=== PATIENT | female | born 2000 | race American Indian/Alaskan Native ===

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

== ENCOUNTER 2020-05-24 15:31 | Inpatient (IN) | payer MEDICAID, OTHER ==
[2020-05-24] MEDS ORDERED: Carboprost Tromethamine 250 MCG/1 ML Amp IM PRN (17:07)
[2020-05-24] MEDS ORDERED: Methylergonovine 0.2 MG/1 ML Amp IM PRN (17:07)
[2020-05-24] MEDS ORDERED: Sodium Chloride 0.9% 10 ML Syringe FLUSH PRN (17:07)
[2020-05-24] MEDS ORDERED: Lidocaine 1% 30 ML SDV INJECT PRN (17:07)
[2020-05-24] MEDS ORDERED: Tranexamic Acid 1,000 MG in Sodium Chloride 0.9% 100 ML IV PRN (17:07)
[2020-05-24] MEDS ORDERED: Lactated Ringers 1,000 ML IV ONE (17:07)
[2020-05-24] MEDS ORDERED: Acetaminophen 325 MG Tab PO PRN (17:07)
[2020-05-24] MEDS ORDERED: Misoprostol 400 MCG (4 X 100 MCG TAB) RECTAL PRN (17:07)
[2020-05-24] MEDS ORDERED: Ondansetron 4 MG/2 ML SDV IVPUSH PRN (17:07)
[2020-05-24] MEDS ORDERED: Lactated Ringers 1,000 ML IV SCH (17:15)
[2020-05-24] MEDS ORDERED: Oxytocin/Normal Saline 30 UNIT/500 ML BAG IV SCH (17:15)
--- NOTE | 2020-05-24 19:22 | OBOUT ---
DATE: 05/24/2020 TIME: 1600 to 1620. REASON FOR NST: 1. Intrauterine at 37-6/7th weeks to 38-6/7th weeks based on ultrasound and LMP. 2. Being admitted for active labor. 3. GBS negative. 4. Positive gonorrhea treated last week. 5. Rubella nonimmune. 6. G1, P0. 7. bradycardia noted in the clinic prior to NST. NST INTERPRETATION: During this time period, heart tone baseline is approximately 120 and at least two 15 x 15 beats per minute accelerations, making this strip reactive as well as reassuring. Tocometer reveals potential 8 to 10 contractions felt by patient. ASSESSMENT: 1. Nonstress test, reactive and reassuring. 2. Tocometer with contractions. PLAN: Please see admit history and physical for further details. [facility] /[id number]
--- NOTE | 2020-05-24 21:13 | HP ---
PATIENT IDENTIFICATION: Esteban Eli is a 19-year-old G1, P0, intrauterine , 37-6/7 weeks by dates, 38-6/7 weeks by a 22-6/7-week ultrasound, presents with contractions. HISTORY OF PRESENT ILLNESS: The patient was initially seen in the clinic, had heart tones in the 90s, and was sent over to the hospital immediately; thereafter, at the hospital, no decelerations or significant bradycardia was noted; however, she was ronnell every 2 minutes on the strip and started complaining of back pain and now subsequent front pain with contractions worsening over time. She describes them severe enough that she will breathe through them, coming on every 2 to 3 minutes, and worsening over time. She denies any leaking of fluid. Minimal bloody show was noted with the initial cervical exam done over at the clinic. She is GBS negative. She was treated for gonorrhea and chlamydia back in 11/2019 after being positive on 11/07/2019 and then was tested negative on 01/11/2020 and then positive for gonorrhea on 05/10/2020 and was treated last week for this with Zithromax and Rocephin. She was GBS negative on 05/10/2020. Records were called for, reviewed as below, and supplemented by patient history. ALLERGIES: None listed. MEDICATIONS: vitamins daily. PAST MEDICAL/PAST SURGICAL HISTORY: Reviewed and contributory for a history of irregular menses, using Depo in the past in 2013. FAMILY HISTORY: Mother with asthma. Maternal grandfather with stomach cancer. Maternal grandmother with cervical cancer and diabetes. Brother had cerebral palsy, severe, from trauma. No other defects, anesthesia problems, or bleeding problems. SOCIAL HISTORY: Living with aunt, Yael, and mother, sister, uncle, brother, and cousin as well as grandmother in the [place] area; starting college this coming semester, studying at [employer]. The father of the baby is Jb [address]. He is currently in [place] and presenting to the hospital today. They are planning on having a baby boy. She denies any alcohol, tobacco, or drug use. REVIEW OF SYSTEMS: Otherwise reviewed fully and felt to be noncontributory. Antepartum labs from S records. ABO blood type B positive. Negative antibody. Rubella nonimmune. RPR nonreactive. Negative hepatitis B surface antigen, hep C, and HIV. GC and chlamydia were initially positive on 11/07/2019, treated on 11/24/2019, and negative on 01/11/2020, followed by positive gonorrhea on 05/10/2020, treated last week, and GBS was negative on 05/10/2020. OBJECTIVE: VITAL SIGNS: Temperature is 97.2, blood pressure is 108/69, and heart rate is 84. APPEARANCE: A female, appears stated age, acting appropriate for age, nontoxic appearance, breathing through her contractions, but answering questions appropriately in between. HEAD: Atraumatic. EYES: EOMs are intact. PERRLA. No scleral icterus. No obvious otorhinorrhea. Mucous members are moist. NECK: No obvious tenderness. LUNGS: Clear to auscultation bilaterally. No increased work of breathing. HEART: S1 and S2. Regular rate and rhythm. ABDOMEN: Gravid. Michael's is indeterminate. Nontender. Nondistended. Bowel sounds are positive. No organomegaly, pulsatile masses, or obvious hernias. No rebound, rigidity, or guarding with monitors applied. GENITOURINARY: Normal external female genitalia. Normal position and presentation of the urethra. Vaginal exam initially done in the clinic, 3 cm, over 75% effaced, -1 and -2 station, vertex suspected. Within 2 hours, she was 4+ cm, 90% effaced, 0 station, vertex suspected, and bulging bag of water felt. EXTREMITIES: No peripheral edema. Deep tendon reflexes are 2 to 3 out of 4 bilaterally and symmetric in the lower extremities. PSYCHIATRIC: Mood and affect are congruent. Judgment and insight are intact. SKIN: Without cyanosis, clubbing, or jaundice. LABORATORY DATA: CBC is pending as well as a rapid COVID test. NST was found to be reactive and reassuring. Tocometer reveals contractions every 2-1/2 minutes on average. ASSESSMENT: 1. Intrauterine , 37-6/7 weeks by last menstrual period, 38-6/7 weeks by a 22-6/7-week ultrasound. 2. Active labor with contractions and cervical change. 3. Group B Streptococcus negative. 4. Positive gonorrhea diagnosed on 05/10/2020, treated last week, and earlier positive gonorrhea and chlamydia in 10/2019, treated on 11/24/2019 with negative being on 01/11/2020. 5. G1, P0. 6. Rubella nonimmune, will need MMR . PLAN: The patient will be admitted. We will continue to follow clinically and closely. The patient defers artificial rupture of membranes at this time as she is waiting for her boyfriend to come up from [place]. I did discuss options with her, and we will continue to follow closely at this point in time. The patient understands and agrees with the above treatment plan. [facility] /[id number]
[2020-05-25] MEDS ORDERED: Nalbuphine 10 MG/1 ML Vial IM ONE (10:22)
[2020-05-25] MEDS ORDERED: Sodium Bicarbonate 4.2% 2.5 MEQ/5 ML SDV ONE ×2 (11:59→12:00)
[2020-05-25] MEDS ORDERED: fentaNYL 100 MCG/2 ML SDV ONE (11:59)
[2020-05-25] MEDS ORDERED: EPINEPHrine 1 MG/1 ML Amp ONE (11:59)
[2020-05-25] MEDS ORDERED: fentaNYL 100 MCG/2 ML SDV ITHECAL ONE (12:00)
[2020-05-25] MEDS ORDERED: Sodium Chloride 0.9% 20 ML SDV ONE (12:00)
[2020-05-25] MEDS ORDERED: ePHEDrine 50 MG/ML SDV ONE (12:21)
--- NOTE | 2020-05-25 12:31 | PCM.SN.2 ---
- Free Text/Narrative Note: Intrathecal. Sitting position, sterile prep and drape. 1% lidocaine w bicarb for skinwheal to L2 L3 interspace, introducer, 24 ga pencan x 1. Pos CSF neg heme, neg parasthesia. 15 mcg pf sufenta, 35 mcg pf fentanyl, 0.4 ml pf NS and 6 mg of 0.75% PF marcaine injected after CSF aspiration. Pt to L lateral position. Pr ocedure time 1200 to 1230
--- NOTE | 2020-05-25 12:35 | PN ---
DATE: 05/25/2020 SUBJECTIVE: The patient's contractions last night were waxing and waning. They have picked up a little bit more this morning. She now has her boyfriend here and is requesting artificial rupture of membranes. Her mother is also present as well. OBJECTIVE: Vital Signs: Blood pressure 104/59, heart rate 94, temperature 98.5. Pelvic: heart tones 140s and felt to be reactive, reassuring. Tocometer reveals contractions every couple of minutes. Vaginal exam reveals to be 4+ cm, 95% effaced, 0 station, vertex suspected. Artificial rupture of membranes done after discussion with the patient yielding copious amounts of clear fluid. ASSESSMENT/PLAN: 1. Intrauterine , suspect 39 weeks after further review of chart with an ultrasound done earlier in the in January revealing her EFW percentile to be 96 percentile with a due date of 06/01/2020 and confirming this with last menstrual period by ultrasound report. 2. Active/late in labor. At this point in time, the patient's contractions continue. She is 39 plus weeks. She is requesting artificial rupture of membranes and shared decision was made in regard to this yielding copious amounts of clear fluid as above. 3. History of positive gonorrhea, treated last week. 4. Rubella nonimmune, will need MMR . 5. bradycardia that was noted in the clinic, none has been seen here while monitoring and we will continue to follow clinically and closely. Plan as above. The patient understands and agrees to the above treatment plan. [facility] /[id number]
[2020-05-25] MEDS ORDERED: ePHEDrine 50 MG/ML SDV IVPUSH ONE (12:54)
[2020-05-25] MEDS ORDERED: Benzocaine/Menthol 20%-0.5% Spray 56 GM Canister TOP PRN (16:36)
[2020-05-25] MEDS ORDERED: Oxytocin 10 Units/1 ML SDV IM PRN (16:36)
[2020-05-25] MEDS ORDERED: Simethicone 80 MG Tab.Chew PO PRN (16:36)
[2020-05-25] MEDS ORDERED: Measles, Mumps & Rubella Vaccine 0.5 ML SDV SUBCUT ONE (16:36)
[2020-05-25] MEDS ORDERED: Zolpidem 5 MG Tab PO PRN (16:36)
[2020-05-25] MEDS: Ibuprofen 800 MG Tab PO PRN (22:46)
[2020-05-25] MEDS: Docusate Sodium 100 MG Cap PO PRN (22:46)
[2020-05-26] MEDS: Ibuprofen 800 MG Tab PO PRN ×2 (10:11→17:45)
[2020-05-26] MEDS: Prenatal Multivitamin with Calcium/Folic Acid/Iron Tab PO SCH (10:12)
[2020-05-26] MEDS: Ferrous Sulfate 325 MG Tab PO SCH (10:13)
[2020-05-26] MEDS: Docusate Sodium 100 MG Cap PO PRN (10:13)
--- NOTE | 2020-05-26 13:21 | PN ---
DATE: 05/26/2020 day #1, status post vacuum- assisted vaginal delivery with a right vaginal sidewall and second-degree perineal laceration-repaired. SUBJECTIVE: The patient is tolerating p.o., was ambulating, urinating, unsure on flatus. OBJECTIVE: Vital Signs: Temperature 99.1, heart rate 80, blood pressure 120/59, respiratory rate 16. Lungs: Clear to auscultation bilaterally. Heart: S1, S2. Regular rate and rhythm. Abdomen: Firm uterus, -2 below umbilicus. Extremities: No peripheral edema. No calf pain. LABORATORY DATA: White cell count 14.2, hemoglobin 10.1 compared to predelivery hemoglobin 12.1, and platelets of 227. ASSESSMENT AND PLAN: 1. day #1 status post vacuum- assisted vaginal delivery of right vaginal sidewall and secondary perineal laceration-repaired. 2. Anemia of acute blood loss. At this point in time, hemoglobin is at 10.1. The patient is asymptomatic. We will continue to follow clinically and closely at this point in time. Otherwise, possible discharge tomorrow discussed with the patient and we will follow closely at this time. [facility] /[id number]
[2020-05-27] MEDS: Ibuprofen 800 MG Tab PO PRN ×2 (03:45→17:23)
[2020-05-27] MEDS: Prenatal Multivitamin with Calcium/Folic Acid/Iron Tab PO SCH (09:11)
[2020-05-27] MEDS: Ferrous Sulfate 325 MG Tab PO SCH (09:11)
[2020-05-27] MEDS: Docusate Sodium 100 MG Cap PO PRN (09:11)
[2020-05-27 09:24] VITALS: BP 83/40; PULSE 69
--- NOTE | 2020-05-28 11:20 | DEL ---
DATE: 05/25/2020 PREOPERATIVE DIAGNOSES: 1. Intrauterine at 39 weeks confirmed/by 22-6/7 week ultrasound. 2. Labor upon admission. 3. Group B Streptococcus negative. 4. Positive gonorrhea disease 05/10/2020, treated last week. 5. Rubella nonimmune. 6. G1, P0. 7. bradycardia noted in the clinic on 05/24/2020. 8. bradycardia in the second stage of labor with occasional recurrent decelerations. POSTOPERATIVE DIAGNOSES: 1. Intrauterine at 39 weeks confirmed/by 22-6/7 week ultrasound - delivered via vacuum-assisted vaginal delivery with Kiwi. 2. Labor upon admission. 3. Group B Streptococcus negative. 4. Positive gonorrhea disease 05/10/2020, treated last week. 5. Rubella nonimmune. 6. G1, P0. 7. bradycardia noted in the clinic on 05/24/2020. 8. bradycardia in the second stage of labor with occasional recurrent decelerations. 9. Right vaginal sidewall and second-degree perineal laceration - repaired. PROCEDURE PERFORMED: Nonstress test followed by artificial rupture of membranes and then subsequent vacuum-assisted vaginal delivery with right vaginal sidewall and second-degree perineal laceration - repaired. ANESTHESIA/ANALGESIA: The patient did receive Nubain in the first stage of labor as well as an intrathecal. ESTIMATED BLOOD LOSS: 350 mL. FINDINGS: Male with score of 8 and 9, weight pending. SUMMARY OF EVENTS: The patient is a 19-year-old, G1, P0, intrauterine at 38-6/7 weeks on date of admission 05/24/2020. This was confirmed/by 22-6/7 week ultrasound. She was initially seen in the clinic, noted to have bradycardia, was sent over to the hospital, and was found to have contractions with cervical change with suspected labor overnight. Her contractions waxed and waned and in the morning, further evaluation did reveal some cervical change. She was requesting artificial rupture of membranes and this was subsequently done. She rapidly progressed in the labor, received Nubain and intrathecal. She was found to be complete and I was called to the room. Subsequently, she started pushing with contractions. descent was noted. During this time, there were some occasional decelerations and then subsequently bradycardia in the 190s to 100s range. Prior to this, Carty catheter was introduced twice to drain the bladder yielding clear to yellowish colored urine. With bradycardia noted, I did discuss with the patient and her male partner proceeding with Kiwi vacuum-assisted vaginal delivery. Discussed the risks, benefits, alternatives, and complications of this. They understood and agreed and wished to proceed. Subsequently, with the next episode of pushing, vertex was seen splitting in the labia. Kiwi vacuum was applied, pumped up to the green, and with gentle pulling pressure, further descent was noted with patient pushing. Between contractions pressure was let down to the yellow zone. After few contractions, a pop-off was noted. Thereafter, bradycardia was noted to recur. Kiwi vacuum was then applied again, pumped up to the green with gentle pulling with contractions pumped up to the green during contractions and down to the yellow when not having contractions. vertex was subsequently delivered. Vacuum was disengaged. CHALO presentation was noted and right hand was by the cheek. Subsequently, with patient continuing to push, anterior shoulder as well as posterior shoulder and rest of the infant delivered without difficulty. Mouth and nares were suctioned. Cord was doubly clamped, cut, and infant was brought to team. Then, approximately 10 mL of cord blood was obtained for labs. Placenta was then delivered with gentle cord traction and fundal massage within 10 minutes. Perineum, vagina, and perirectal areas were then examined and noted to have a right vaginal sidewall laceration extending into a small second-degree perineal laceration. This was subsequently repaired in usual fashion using 3-0 Vicryl. Perineum, vagina, and perirectal areas were then otherwise examined without any other tears or lacerations. Mother and infant are currently stable at the time of dictation. [facility] /[id number] PATRICIA
--- NOTE | 2020-05-28 11:39 | DISCH ---
ADMISSION DIAGNOSES: 1. Intrauterine at 38-6/7 weeks, confirmed by 22-6/7 week ultrasound. 2. Contractions with latent versus active labor, subsequently went into active labor slowly. 3. GBS negative. 4. Positive gonorrhea, treated last week. 5. Rubella nonimmune. 6. bradycardia noted in the clinic on the day of admission, resolved here. 7. 1, Para 0. DISCHARGE DIAGNOSES: 1. Intrauterine at 39 weeks-delivered via vacuum-assisted vaginal delivery. 2. Contractions with latent versus active labor, subsequently went into active labor slowly. 3. GBS negative. 4. Positive gonorrhea, treated last week. 5. Rubella nonimmune. 6. bradycardia noted in the clinic on the day of admission, resolved here. 7. 1, Para 0. 8. bradycardia in the second stage of labor. 9. Recurrent decelerations. 10.Right vaginal sidewall and secondary perineal laceration-repaired. 11.Anemia of acute blood loss, hemoglobin dropping from 12.1 predelivery to 10.1, post delivery without symptoms. PROCEDURES PERFORMED: NST, artificial rupture of membranes with vacuum-assisted vaginal delivery with right vaginal sidewall and 2nd degree perineal laceration- repaired per Dr. Davies. HISTORY OF PRESENT ILLNESS: Please see H and P. SUMMARY OF HOSPITAL COURSE: The patient was admitted on the above date with above diagnoses, had contractions with cervical change. Deferred wanting artificial rupture of membranes, was followed through the evening of 05/24/2020 and then on 05/25/2020, started having contractions with cervical change, underwent artificial rupture of membranes. Rapidly progressed through and into the second stage of labor with second stage of labor, had bradycardia as well as recurrent decelerations. Vacuum-assisted vaginal delivery was done with Kiwi vacuum, yielding a male, score 8 and 9, weighing 7 pounds 4 ounces (3300 g). Please see delivery note for further details. This is notable for right vaginal sidewall and second-degree perineal laceration that was repaired with an EBL 350 mL. day #1, please see progress note. Hemoglobin dropped down to 10.1, the patient was asymptomatic. day #2, date of discharge, the patient was tolerating p.o., was ambulating, urinating, passing flatus, requesting discharge. PHYSICAL EXAMINATION: Vital Signs: Last set of vitals, temperature 98.6, heart rate 69, blood pressure 83/40, prior to that was 102/64, respiratory rate is between 12 and 16. Appearance: No apparent distress. Lungs: Clear to auscultation bilaterally. Heart: S1, S2. Regular rate and rhythm. Abdomen: Firm uterus, -2 below umbilicus. Extremities: No peripheral edema. No calf pain. CONDITION ON DISCHARGE COMPARED TO CONDITION ON ADMISSION: Improved. DISCHARGE INSTRUCTIONS: 1. Diet as tolerated. 2. Activity: No lifting more than 20 pounds. No sit-ups or straining and pelvic rest for the next 6 weeks with immediate return to fertility discussed with the patient. Reasons to return or go to the emergency room were discussed with the patient in detail including but not limited to, temperature greater than 100.4, foul- smelling discharge, red or tender breasts, or increased vaginal bleeding. DISCHARGE MEDICATIONS: 1. [id number] ibuprofen for pain. 2. vitamins daily. FOLLOWUP: 6 weeks . Followup for her baby is recommended for May 29, 2020, and I did discuss with her in the interim reason to go to the emergency room as well as the process of calling clinic tomorrow morning to make an appointment. She understands and agrees to the above treatment plan. [facility] /[id number]
== END 2020-05-27 18:00 | disposition home or self-care (01) | DRG 806 ==
LOC: DL.OBCHECK 15:31 → UNDOADMOB 17:28 → DL.OB 17:28 → INTOOBSV 05-25 14:42 → OBSVTOIN 05-25 14:42 → UNDODISIN 05-27 18:00
PROVIDERS: ADMIT Family Medicine; ATTEND Family Medicine
PROC: 10D07Z6 Extraction of Products of Conception, Vacuum, Via Natural or Artificial Opening (ICD-10-PCS; principal; 2020-05-25)
PROC: 0KQM0ZZ Repair Perineum Muscle, Open Approach (ICD-10-PCS; 2020-05-25)
PROC: 10907ZC Drainage of Amniotic Fluid, Therapeutic from Products of Conception, Via Natural or Artificial Opening (ICD-10-PCS; 2020-05-25)
PROC: 0UQGXZZ Repair Vagina, External Approach (ICD-10-PCS; 2020-05-25)
PROC: 3E0R3BZ Introduction of Anesthetic Agent into Spinal Canal, Percutaneous Approach (ICD-10-PCS; 2020-05-25)
PROC: 00HU33Z Insertion of Infusion Device into Spinal Canal, Percutaneous Approach (ICD-10-PCS; 2020-05-25)
DX: O76 Abnormality in fetal heart rate and rhythm complicating labor and delivery (principal); D62 Acute posthemorrhagic anemia; Z37.0 Single live birth; O71.4 Obstetric high vaginal laceration alone; O99.02 Anemia complicating childbirth; Z3A.39 39 weeks gestation of pregnancy; Z20.822 Contact with and (suspected) exposure to COVID-19
CPT/HCPCS: 01967; 36415; 59025; 59409; 85027; 90471; 90707; A9270-GY; J2300; J2405; J2590; J3010; J7120; U0002

== ENCOUNTER 2020-08-13 21:12 | Emergency (ER) | payer MEDICAID ==
[2020-08-13 22:08] VITALS: BP 107/72; PULSE 104
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
[2020-08-13] MEDS ORDERED: cefTRIAXone 500 MG, Lidocaine 1% 1 ML IM ONE ×2 (22:39)
[2020-08-13] MEDS ORDERED: Azithromycin 250 MG Tab PO ONE (22:39)
[2020-08-15 11:46] LABS: C.TRACHOMATIS BY TMA Positive (Negative); N.GONORRHOEAE BY TMA Positive (Negative)
== END 2020-08-13 23:22 | disposition home or self-care (01) ==
LOC: DL.ED 21:12
DX: T74.21XA Adult sexual abuse, confirmed, initial encounter (principal); Z72.51 High risk heterosexual behavior
CPT/HCPCS: 36415; 80305; 81003; 81025; 86803; 87210; 87340; 87389; 87491; 87591; 96372; 99282; 99283; A9270; J0696

== ENCOUNTER 2021-12-04 16:04 | Emergency (ER) | payer MEDICAID ==
[2021-12-04 16:29] VITALS: BP 118/87; PULSE 110
== END 2021-12-04 17:00 | disposition home or self-care (01) ==
LOC: DL.ED 16:04
DX: S60.221A Contusion of right hand, initial encounter (principal); S60.222A Contusion of left hand, initial encounter; W22.09XA Striking against other stationary object, initial encounter
CPT/HCPCS: 73130-50; 99283

== ENCOUNTER 2022-04-26 09:55 | Emergency (ER) | payer MEDICAID ==
[2022-04-26 11:00] VITALS: BP 95/68; PULSE 97
[2022-04-26 11:19] LABS: CORONAVIRUS COVID-19 NAA NEGATIVE (NEGATIVE); RESPIRATORY SYNCYTIAL VIR NAA NEGATIVE (NEGATIVE)
== END 2022-04-26 12:11 | disposition home or self-care (01) ==
LOC: DL.ED 09:55
DX: O21.9 Vomiting of pregnancy, unspecified (principal); J02.9 Acute pharyngitis, unspecified; Z3A.00 Weeks of gestation of pregnancy not specified; Z20.822 Contact with and (suspected) exposure to COVID-19
CPT/HCPCS: 0241U; 81001; 81025; 87081; 87086; 87430; 99284

== ENCOUNTER 2022-12-16 11:03 | Emergency (ER) | payer MEDICAID, OTHER ==
[2022-12-16 11:17] VITALS: BP 124/86; PULSE 118
[2022-12-16] MEDS: diphenhydrAMINE 50 MG/ML SDV IVPUSH ONE (11:35)
[2022-12-16] MEDS: Famotidine 20 MG/2 ML SDV IVPUSH ONE (11:35)
[2022-12-16] MEDS: Sodium Chloride 0.9% 1,000 ML IV ONE (11:35)
[2022-12-16] MEDS: methylPREDNISolone Sodium Succinate 125 MG/2 ML SDV IVPUSH ONE (11:35)
== END 2022-12-16 12:41 | disposition home or self-care (01) ==
LOC: DL.ED 11:03
DX: T63.441A Toxic effect of venom of bees, accidental (unintentional), initial encounter (principal)
CPT/HCPCS: 96374; 96375; 99282; 99282-25; J1200; J2930; J3490; J7030

== ENCOUNTER 2023-01-05 21:06 | Emergency (ER) | payer MEDICAID ==
[2023-01-05] MEDS: Docusate Sodium 100 MG Cap PO ONE (22:03)
[2023-01-05] MEDS: Ibuprofen 400 MG Tab PO ONE (22:27)
[2023-01-05] MEDS: Amoxicillin/Clavulanate K 875-125 MG Tab PO ONE (22:49)
[2023-01-05 23:52] VITALS: BP 118/74; PULSE 95
== END 2023-01-05 23:49 | disposition home or self-care (01) ==
LOC: DL.ED 21:06
DX: J02.0 Streptococcal pharyngitis (principal); H61.22 Impacted cerumen, left ear; Z20.822 Contact with and (suspected) exposure to COVID-19
CPT/HCPCS: 87430; 99282; 99283; A9270-GY; U0002

== ENCOUNTER 2023-02-25 14:45 | Emergency (ER) | payer MEDICAID ==
[2023-02-25 15:04] VITALS: BP 100/62; PULSE 103
[2023-02-25 15:51] LABS: CORONAVIRUS COVID-19 NAA NEGATIVE (NEGATIVE); INFLUENZA A NAA NEGATIVE (NEGATIVE); INFLUENZA B NAA NEGATIVE (NEGATIVE); RESPIRATORY SYNCYTIAL VIR NAA NEGATIVE (NEGATIVE)
[2023-02-25 17:04] LABS: BASOPHILS PERCENT AUTO 1.5 % (0.0-1.0); EOSINOPHILS PERCENT AUTO 3.5 % (1.0-3.0); HEMATOCRIT 38.7 % (37.0-47.0); HEMOGLOBIN 13.2 g/dL (12.0-16.0); LYMPHOCYTES PERCENT AUTO 32.3 % (20.5-50.1); MEAN CORPUSCULAR HEMOGLOBIN 29.3 pg (27.0-34.0); MEAN CORPUSCULAR HGB CONC 34.1 g/dL (33.0-35.0); MONOCYTES PERCENT AUTO 9.9 % (2-8); NEUTROPHILS PERCENT AUTO 52.8 % (42.2-75.2); PLATELET COUNT,PLT 273 10^3/uL (150-450); WHITE BLOOD CELL COUNT,WBC 6.7 10^3/uL (5.0-10.0)
[2023-02-25] MEDS ORDERED: Albuterol 6.7 GM Inhaler INH ONE (17:11)
[2023-02-25] MEDS ORDERED: Dexamethasone 4 MG Tab PO ONE (17:13)
[2023-02-25 17:24] LABS: HCG QUALITATIVE,SERUM NEGATIVE (NEGATIVE)
[2023-02-25 17:31] LABS: C-REACTIVE PROTEIN < 0.05 ng/dL (<=0.30)
== END 2023-02-25 17:48 | disposition home or self-care (01) ==
LOC: DL.ED 14:45
DX: R09.1 Pleurisy (principal); F17.210 Nicotine dependence, cigarettes, uncomplicated; Z20.822 Contact with and (suspected) exposure to COVID-19
CPT/HCPCS: 0241U; 36415; 71046; 84484; 84703; 85025; 85379; 86140; 87081; 87430; 93005; 99285; A9270; J8540; 93010; 99284

== ENCOUNTER 2023-10-22 15:51 | Emergency (ER) | payer BC, MEDICAID ==
[2023-10-22] MEDS: Sodium Chloride 0.9% 10 ML Syringe FLUSH PRN (16:24)
[2023-10-22 16:30] LABS: BASOPHILS PERCENT AUTO 2.2 % (0.0-1.0); EOSINOPHILS PERCENT AUTO 2.5 % (1.0-3.0); HEMATOCRIT 39.3 % (37.0-47.0); HEMOGLOBIN 12.9 g/dL (12.0-16.0); LYMPHOCYTES PERCENT AUTO 24.6 % (20.5-50.1); MEAN CORPUSCULAR HEMOGLOBIN 29.1 pg (27.0-34.0); MEAN CORPUSCULAR HGB CONC 32.8 g/dL (33.0-35.0); MEAN CORPUSCULAR VOLUME 88.5 fL (80-100); MONOCYTES PERCENT AUTO 13.2 % (2-8); NEUTROPHILS PERCENT AUTO 57.5 % (42.2-75.2); PLATELET COUNT,PLT 292 10^3/uL (150-450); RED BLOOD CELL COUNT 4.44 10^6/uL (4.2-5.4); WHITE BLOOD CELL COUNT,WBC 6.9 10^3/uL (5.0-10.0)
[2023-10-22] MEDS: Sodium Chloride 0.9% 1,000 ML IV ONE (16:40)
[2023-10-22 16:46] LABS: HCG QUALITATIVE,SERUM NEGATIVE (NEGATIVE)
[2023-10-22 16:53] LABS: APPEARANCE,URINE CLEAR (CLEAR); BILIRUBIN,URINE NEGATIVE (NEGATIVE); COLOR,URINE DARK YELLOW (YELLOW); GLUCOSE,URINE NEGATIVE (NEGATIVE); KETONES,URINE NEGATIVE (NEGATIVE); LEUKOCYTE ESTERASE,URINE NEGATIVE (NEGATIVE); NITRITE,URINE NEGATIVE (NEGATIVE); OCCULT BLOOD,URINE NEGATIVE (NEGATIVE); PH,URINE 6.5 (5.0-9.0); PROTEIN,URINE TRACE (NEGATIVE)
[2023-10-22 16:54] LABS: A/G RATIO 1.1; ALANINE AMINOTRANSFERASE,ALT 21 U/L (14-59); ALBUMIN 4.3 g/dL (3.4-5.0); ALKALINE PHOSPHATASE 58 U/L (46-116); ANION GAP 14.6 mEq/L (7-13); ASPARTATE AMNIOTRANSFERASE,AST 13 U/L (15-37); BILIRUBIN TOTAL 0.4 mg/dL (0.2-1.0); BLOOD UREA NITROGEN,BUN 11 mg/dL (7-18); BUN/CREATININE RATIO 13.6 (No establ ref range); CALCIUM 8.7 mg/dL (8.5-10.1); CARBON DIOXIDE,CO2 26 mmol/L (21-32); CHLORIDE,CL 106 mmol/L (98-107); CREATININE 0.81 mg/dL (0.55-1.02); EST CRCL DRUG DOSING (CG) 92.48 mL/min; GLUCOSE RANDOM 95 mg/dL (70-99); POTASSIUM,K 3.6 mmol/L (3.5-5.1); PROTEIN TOTAL,TP 8.1 g/dL (6.4-8.2); SODIUM,NA 143 mmol/L (136-145)
[2023-10-22 16:55] LABS: ESTIMATED GFR 104 mL/min (>=60)
[2023-10-22 16:56] LABS: C-REACTIVE PROTEIN < 0.50 ng/dL (<=0.50)
[2023-10-22 17:02] LABS: EPITHELIAL CELLS,URINE FEW /HPF (NOT SEEN); MUCUS,URINE MODERATE /LPF (NOT SEEN); RBC,URINE NOT SEEN /HPF (0-5); WBC,URINE 0-5 /HPF (0-5/HPF)
[2023-10-22 17:03] LABS: BACTERIA,URINE FEW /HPF (0-FEW/HPF)
[2023-10-22] MEDS: Ketorolac 30 MG/ML SDV IVPUSH ONE (17:35)
== END 2023-10-22 17:43 | disposition home or self-care (01) ==
LOC: DL.ED 15:51
DX: K52.9 Noninfective gastroenteritis and colitis, unspecified (principal)
CPT/HCPCS: 36415; 74018; 80053; 81001; 83605; 84703; 85025; 86140; 96361; 96374; 99284; J1885; J7030; J3490

== ENCOUNTER 2023-11-18 02:13 | Emergency (ER) | payer BC ==
[2023-11-18] MEDS: Sodium Chloride 0.9% 1,000 ML IV ONE (02:40)
[2023-11-18] MEDS: diphenhydrAMINE 50 MG/ML SDV IVPUSH ONE (02:42)
[2023-11-18] MEDS: Loratadine 10 MG Tab PO ONE (02:45)
[2023-11-18] MEDS: methylPREDNISolone Sodium Succinate 40 MG/1 ML SDV IVPUSH ONE (02:47)
[2023-11-18 03:30] VITALS: BP 118/76; PULSE 90
== END 2023-11-18 03:45 | disposition home or self-care (01) ==
LOC: DL.ED 02:13
DX: T78.40XA Allergy, unspecified, initial encounter (principal); Z91.030 Bee allergy status
CPT/HCPCS: 96374; 96375; 99282; 99283-25; A9270-GY; J1200; J2919; J7030

== ENCOUNTER 2024-09-23 18:51 | Emergency (ER) | payer BC, OTHER ==
[2024-09-23] MEDS ORDERED: Metoclopramide 10 MG Tab PO ONE (18:52)
[2024-09-23] MEDS ORDERED: Sodium Chloride 0.9% 10 ML Syringe FLUSH PRN (19:08)
[2024-09-23] MEDS: Metoclopramide 10 MG/2 ML SDV IVPUSH ONE (19:19)
[2024-09-23 19:37] LABS: APPEARANCE,URINE CLEAR (CLEAR); BILIRUBIN,URINE NEGATIVE (NEGATIVE); COLOR,URINE YELLOW (YELLOW); GLUCOSE,URINE NEGATIVE (NEGATIVE); KETONES,URINE NEGATIVE (NEGATIVE); LEUKOCYTE ESTERASE,URINE TRACE (NEGATIVE); NITRITE,URINE NEGATIVE (NEGATIVE); OCCULT BLOOD,URINE TRACE-LYSED (NEGATIVE); PROTEIN,URINE NEGATIVE (NEGATIVE); UROBILINOGEN,URINE 0.2 mg/dL (0.2-1.0)
[2024-09-23] MEDS: Sodium Chloride 0.9% 1,000 ML IV ONE (19:38)
[2024-09-23 19:44] LABS: ANION GAP 9.3 mEq/L (7-13); BLOOD UREA NITROGEN,BUN 7 mg/dL (7-18); CALCIUM 9.4 mg/dL (8.5-10.1); CARBON DIOXIDE,CO2 23 mmol/L (21-32); CHLORIDE,CL 100 mmol/L (98-107); CREATININE 0.69 mg/dL (0.55-1.02); GLUCOSE RANDOM 98 mg/dL (70-99); MAGNESIUM 2.1 mg/dL (1.8-2.4); POTASSIUM,K 3.3 mmol/L (3.5-5.1); SODIUM,NA 129 mmol/L (136-145)
[2024-09-23 19:46] LABS: ESTIMATED GFR 123 mL/min (>=60)
[2024-09-23 19:57] LABS: BACTERIA,URINE MODERATE /HPF (0-FEW/HPF); EPITHELIAL CELLS,URINE RARE /HPF (NOT SEEN); WBC,URINE 20-30 /HPF (0-5/HPF)
[2024-09-23] MEDS: Potassium Chloride 10 MEQ Tab.ER PO ONE (20:00)
[2024-09-23] MEDS: cefTRIAXone 2 GM Vial IVPUSH ONE (20:00)
[2024-09-23] MEDS ORDERED: Metoclopramide 10 MG Tab ONE (20:12)
[2024-09-23 20:38] VITALS: BP 115/70; PULSE 84
[2024-09-28 11:47] LABS: C.TRACHOMATIS BY TMA Negative (Negative); M GENITALIUM Negative (Negative); M GENITALIUM SOURCE Urine; N.GONORRHOEAE BY TMA Negative (Negative); SOURCE Urine
== END 2024-09-23 20:30 | disposition home or self-care (01) ==
LOC: DL.ED 18:51
DX: O23.11 Infections of bladder in pregnancy, first trimester (principal); N30.01 Acute cystitis with hematuria; O99.281 Endocrine, nutritional and metabolic diseases complicating pregnancy, first trimester; E87.1 Hypo-osmolality and hyponatremia; E87.6 Hypokalemia; Z91.030 Bee allergy status; Z3A.08 8 weeks gestation of pregnancy
CPT/HCPCS: 36415; 80048; 81001; 83735; 87086; 87491; 87563; 87591; 96374; 96375; 99284; A9270; J0696; J2765; J7030

== ENCOUNTER 2024-12-02 16:46 | Emergency (ER) | payer OTHER ==
[2024-12-02] MEDS: Lactated Ringers 1,000 ML IV SCH (17:23)
[2024-12-02 17:24] VITALS: BP 112/60; PULSE 86
[2024-12-02 17:24] LABS: BASOPHILS PERCENT AUTO 0.5 % (0.0-1.0); EOSINOPHILS PERCENT AUTO 1.4 % (1.0-3.0); LYMPHOCYTES PERCENT AUTO 16.1 % (20.5-50.1); MONOCYTES PERCENT AUTO 10.4 % (2-8); NEUTROPHILS PERCENT AUTO 71.6 % (42.2-75.2); PLATELET COUNT,PLT 265 10^3/uL (150-450); RED BLOOD CELL COUNT 3.46 10^6/uL (4.2-5.4); WHITE BLOOD CELL COUNT,WBC 9.2 10^3/uL (5.0-10.0)
[2024-12-02 17:45] LABS: A/G RATIO 0.76; ALANINE AMINOTRANSFERASE,ALT 17.0 U/L (14-59); ASPARTATE AMNIOTRANSFERASE,AST 10.0 U/L (15-37); BILIRUBIN TOTAL 0.2 mg/dL (0.2-1.0); BLOOD UREA NITROGEN,BUN 7.0 mg/dL (7-18); CARBON DIOXIDE,CO2 23.0 mmol/L (21-32); CHLORIDE,CL 104.0 mmol/L (98-107); CREATININE 0.66 mg/dL (0.55-1.02); EST CRCL DRUG DOSING (CG) 112.52 mL/min; ESTIMATED GFR 125.0 mL/min (>=60); GLUCOSE RANDOM 89.0 mg/dL (70-99); POTASSIUM,K 4.1 mmol/L (3.5-5.1); PROTEIN TOTAL,TP 7.2 g/dL (6.4-8.2); SODIUM,NA 136.0 mmol/L (136-145)
[2024-12-02 17:50] LABS: APPEARANCE,URINE CLEAR (CLEAR); GLUCOSE,URINE NEGATIVE (NEGATIVE); OCCULT BLOOD,URINE NEGATIVE (NEGATIVE)
== END 2024-12-02 19:11 | disposition home or self-care (01) ==
LOC: DL.ED 16:46
DX: O26.892 Other specified pregnancy related conditions, second trimester (principal); O30.002 Twin pregnancy, unspecified number of placenta and unspecified number of amniotic sacs, second trimester; Z91.030 Bee allergy status; Z3A.18 18 weeks gestation of pregnancy
CPT/HCPCS: 36415; 76817; 80053; 81003; 83735; 85025; 96360; 99283; 99284; J7120